=== PATIENT | female | born 1930 | race Caucasian/White ===

== ENCOUNTER 2017-05-13 12:46 | Inpatient (IN) | payer MEDICARE, OTHER ==
[~2017-05-13] VITALS: Ht 167.6 cm; Wt 64.4 kg
[2017-05-13] MEDS ORDERED: SIMV20TA6 PO (12:58)
[2017-05-13] MEDS ORDERED: OLAN2.5T3 PO (12:58)
[2017-05-13] MEDS ORDERED: HALO5TAB PO (12:58)
[2017-05-13] MEDS ORDERED: VITAMIN D3 PO (12:58)
[2017-05-13] MEDS ORDERED: LOSA50TA21 PO (12:58)
[2017-05-13 13:12] LABS: BASOPHILS # (AUTO) 0.1 K/uL (0.0-8.0); BASOPHILS % (AUTO) 0.7 % (0.0-2.0); EOSINOPHILS # (AUTO) 0.1 K/uL (0.0-0.7); EOSINOPHILS % (AUTO) 1.5 % (0.0-7.0); HEMATOCRIT 42.7 % (31.2-41.9); HEMOGLOBIN 14.5 g/dL (10.9-14.3); LYMPHOCYTES # (AUTO) 2.3 K/uL (20.0-40.0); LYMPHOCYTES % (AUTO) 25.5 % (20.5-51.5); MEAN CORPUSCULAR HEMOGLOBIN 29.6 uug (24.7-32.8); MEAN CORPUSCULAR HGB CONC 34 g/dL (32.3-35.6); MONOCYTES # (AUTO) 0.6 K/uL (2.0-10.0); NEUTROPHILS # (AUTO) 6.1 K/uL (1.8-8.9); NEUTROPHILS % (AUTO) 66.3 % (38.5-71.5); PLATELET COUNT (AUTO) 251 K/uL (179-408); RED BLOOD CELL COUNT(AUTO) 4.91 MIL/uL (3.63-4.92); WHITE BLOOD COUNT (AUTO) 9.2 K/uL (3.8-11.8)
[2017-05-13 13:23] LABS: CARBON DIOXIDE 27 mmol/L (21-32); CHLORIDE 98 mmol/L (98-107); GLUCOSE 143 mg/dL (74-106); POTASSIUM 2.9 mmol/L (3.5-5.1); UREA NITROGEN, BLOOD 14 mg/dL (7-18)
[2017-05-13 13:23] LABS: *BILIRUBIN,URIN NEGATIVE (NEGATIVE); *BLOOD, URINE Trace-lysed (NEGATIVE); *CLARITY,URINE CLEAR (CLEAR); *COLOR,URINE LIGHT YELLOW (YELLOW); *KETONES,URINE NEGATIVE (NEGATIVE); *PROTEIN,URINE 1+ (NEGATIVE); *UROBILINOGEN,URINE 0.2 E.U./dl (NORMAL); LEUKOCYTE ESTERASE ,URINE 1+ (NEGATIVE); NITRITE, URINE NEGATIVE (NEGATIVE); UGLUCOSE NEGATIVE (NEGATIVE)
[2017-05-13 13:24] LABS: ETHANOL < 3 MG/DL (0-0)
[2017-05-13 13:29] LABS: ALANINE AMINOTRANSFERASE 17 U/L (14-59); ALKALINE PHOSPHATASE 99 U/L (50-136); ASPARTATE AMINOTRANSFERASE 19 U/L (15-37); BILIRUBIN,DIRECT 0.2 mg/dL (0.0-0.2); BILIRUBIN,TOTAL 0.8 mg/dL (0.2-1.0); TOTAL PROTEIN, SERUM 9.3 g/dL (6.4-8.2)
[2017-05-13 13:34] LABS: *AMPHETAMINE, URINE NEGATIVE (NEGATIVE); *BARBITURATE, URINE NEGATIVE (NEGATIVE); *CANNABINOID, URINE NEGATIVE (NEGATIVE); *COCCAINE, URINE NEGATIVE (NEGATIVE); *OPIATE, URINE NEGATIVE (NEGATIVE); *PHENCYCLIDINE SCREEN,URINE NEGATIVE (NEGATIVE)
[2017-05-13 13:45] LABS: BACTERIA,URINE FEW /HPF (NONE SEEN); RBC,URINE 0-3 /HPF (0-3); SQUAMOUS EPITHELIAL CELL,UR MODERATE /HPF (NONE SEEN)
[2017-05-13] MEDS ORDERED: POTASSIUM CHLORIDE 20 MEQ TAB.PRT.SR PO ONE (13:45)
[2017-05-13 13:47] LABS: ACETAMINOPHEN < 2.0 ug/mL (10-30)
[2017-05-13] MEDS ORDERED: POTASSIUM CHLORIDE 20 MEQ TAB.PRT.SR ONE (14:03)
[2017-05-13 15:00] VITALS: BP 153/94
[2017-05-13] MEDS ORDERED: MAG HYDROX/AL HYDROX/SIMETH 30 ML LIQUID UDC PO PRN (15:30)
[2017-05-13] MEDS ORDERED: TEMAZEPAM 7.5 MG CAPSULE PO PRN (15:30)
[2017-05-13] MEDS ORDERED: LORAZEPAM 0.5 MG TABLET PO PRN (15:30)
[2017-05-13 20:20] VITALS: BP 146/64
[2017-05-13] MEDS: CEPHALEXIN MONOHYDRATE 250 MG CAPSULE PO SCH (22:10)
[2017-05-14] MEDS: CEPHALEXIN MONOHYDRATE 250 MG CAPSULE PO SCH ×3 (05:28→21:48)
[2017-05-14 07:25] LABS: BASOPHILS # (AUTO) 0.1 K/uL (0.0-8.0); BASOPHILS % (AUTO) 0.6 % (0.0-2.0); EOSINOPHILS # (AUTO) 0.3 K/uL (0.0-0.7); HEMOGLOBIN 14.4 g/dL (10.9-14.3); LYMPHOCYTES # (AUTO) 2.7 K/uL (20.0-40.0); LYMPHOCYTES % (AUTO) 30.8 % (20.5-51.5); MEAN CORPUSCULAR HEMOGLOBIN 29.3 uug (24.7-32.8); MEAN CORPUSCULAR HGB CONC 33 g/dL (32.3-35.6); MEAN CORPUSCULAR VOLUME 87.7 fL (75.5-95.3); MONOCYTES # (AUTO) 0.6 K/uL (2.0-10.0); MONOCYTES % (AUTO) 6.9 % (0.0-11.0); NEUTROPHILS # (AUTO) 5.1 K/uL (1.8-8.9); NEUTROPHILS % (AUTO) 58.7 % (38.5-71.5); PLATELET COUNT (AUTO) 232 K/uL (179-408); RED BLOOD CELL COUNT(AUTO) 4.91 MIL/uL (3.63-4.92); WHITE BLOOD COUNT (AUTO) 8.7 K/uL (3.8-11.8)
[2017-05-14 07:30] VITALS: BP 167/84
[2017-05-14 07:34] LABS: CARBON DIOXIDE 30 mmol/L (21-32); CHLORIDE 104 mmol/L (98-107); GLUCOSE 112 mg/dL (74-106); POTASSIUM 3.8 mmol/L (3.5-5.1); UREA NITROGEN, BLOOD 19 mg/dL (7-18)
[2017-05-14] MEDS: MAGNESIUM HYDROXIDE 30 ML LIQUID UDC PO PRN (09:10)
[2017-05-14] MEDS: LOSARTAN POTASSIUM 50 MG TABLET PO SCH (13:00)
[2017-05-14 14:11] VITALS: BP 148/72
[2017-05-14 16:41] VITALS: BP 148/72
[2017-05-14] MEDS: OLANZAPINE 2.5 MG TABLET PO SCH (17:00)
[2017-05-14] MEDS: SIMVASTATIN 20 MG TABLET PO SCH (21:00)
[2017-05-15] MEDS: CEPHALEXIN MONOHYDRATE 250 MG CAPSULE PO SCH ×3 (06:19→21:16)
[2017-05-15 08:00] VITALS: BP 146/78
[2017-05-15] MEDS: CHOLECALCIFEROL 1,000 UNIT TABLET PO SCH (08:47)
[2017-05-15] MEDS: LOSARTAN POTASSIUM 50 MG TABLET PO SCH (08:48)
[2017-05-15] MEDS: OLANZAPINE 2.5 MG TABLET PO SCH ×2 (08:48→16:03)
[2017-05-15 16:00] VITALS: BP 137/78
[2017-05-15 20:47] VITALS: BP 129/65
[2017-05-15] MEDS: SIMVASTATIN 20 MG TABLET PO SCH (21:16)
[2017-05-16] MEDS: CEPHALEXIN MONOHYDRATE 250 MG CAPSULE PO SCH ×3 (05:51→21:15)
[2017-05-16] MEDS: ACETAMINOPHEN 325 MG TABLET PO PRN (05:51)
[2017-05-16 07:30] VITALS: BP 154/80
[2017-05-16] MEDS: CHOLECALCIFEROL 1,000 UNIT TABLET PO SCH (09:20)
[2017-05-16] MEDS: LOSARTAN POTASSIUM 50 MG TABLET PO SCH (09:21)
[2017-05-16] MEDS: OLANZAPINE 2.5 MG TABLET PO SCH ×2 (09:21→18:24)
[2017-05-16 16:20] VITALS: BP 155/86
[2017-05-16] MEDS: MAGNESIUM HYDROXIDE 30 ML LIQUID UDC PO PRN (20:16)
[2017-05-16] MEDS: DOCUSATE SODIUM 100 MG CAPSULE PO SCH (20:16)
[2017-05-16] MEDS: SIMVASTATIN 20 MG TABLET PO SCH (20:16)
[2017-05-16 21:10] VITALS: BP 140/80
[2017-05-17] MEDS: CEPHALEXIN MONOHYDRATE 250 MG CAPSULE PO SCH ×3 (05:23→21:20)
[2017-05-17] MEDS: OLANZAPINE 2.5 MG TABLET PO SCH ×2 (09:02→17:14)
[2017-05-17] MEDS: DOCUSATE SODIUM 100 MG CAPSULE PO SCH ×2 (09:02→20:38)
[2017-05-17] MEDS: LOSARTAN POTASSIUM 50 MG TABLET PO SCH (09:03)
[2017-05-17] MEDS: CHOLECALCIFEROL 1,000 UNIT TABLET PO SCH (09:03)
[2017-05-17] MEDS: SIMVASTATIN 20 MG TABLET PO SCH (20:38)
[2017-05-17 21:51] VITALS: BP 133/67
[2017-05-18] MEDS: CEPHALEXIN MONOHYDRATE 250 MG CAPSULE PO SCH ×3 (06:35→22:48)
[2017-05-18 07:30] VITALS: BP 179/88
[2017-05-18] MEDS: DOCUSATE SODIUM 100 MG CAPSULE PO SCH ×2 (08:22→20:53)
[2017-05-18] MEDS: CHOLECALCIFEROL 1,000 UNIT TABLET PO SCH (08:22)
[2017-05-18] MEDS: OLANZAPINE 2.5 MG TABLET PO SCH ×2 (08:22→17:08)
[2017-05-18] MEDS: LOSARTAN POTASSIUM 50 MG TABLET PO SCH (08:23)
[2017-05-18] MEDS ORDERED: LOSARTAN POTASSIUM 50 MG TABLET PO ONE (17:45)
[2017-05-18 18:59] VITALS: BP 139/72
[2017-05-18] MEDS: SIMVASTATIN 20 MG TABLET PO SCH (20:53)
[2017-05-19] MEDS: CEPHALEXIN MONOHYDRATE 250 MG CAPSULE PO SCH ×3 (06:54→22:10)
[2017-05-19 07:30] VITALS: BP 156/87
[2017-05-19] MEDS: OLANZAPINE 2.5 MG TABLET PO SCH ×2 (08:19→16:25)
[2017-05-19] MEDS: LOSARTAN POTASSIUM 50 MG TABLET PO SCH (08:20)
[2017-05-19] MEDS: CHOLECALCIFEROL 1,000 UNIT TABLET PO SCH (08:20)
[2017-05-19] MEDS: DOCUSATE SODIUM 100 MG CAPSULE PO SCH ×2 (08:20→21:38)
[2017-05-19 16:27] VITALS: BP 167/84
[2017-05-19 20:55] VITALS: BP 147/76
[2017-05-19] MEDS: SIMVASTATIN 20 MG TABLET PO SCH (21:38)
[2017-05-20] MEDS: CEPHALEXIN MONOHYDRATE 250 MG CAPSULE PO SCH ×2 (06:17→13:04)
[2017-05-20 07:30] VITALS: BP 175/89
[2017-05-20] MEDS: DOCUSATE SODIUM 100 MG CAPSULE PO SCH ×2 (09:29→20:48)
[2017-05-20] MEDS: OLANZAPINE 2.5 MG TABLET PO SCH ×2 (09:29→17:30)
[2017-05-20] MEDS: CHOLECALCIFEROL 1,000 UNIT TABLET PO SCH (09:29)
[2017-05-20] MEDS: LOSARTAN POTASSIUM 50 MG TABLET PO SCH (09:29)
[2017-05-20] MEDS: ACETAMINOPHEN 325 MG TABLET PO PRN (13:51)
[2017-05-20 17:15] VITALS: BP 133/84
[2017-05-20 19:51] VITALS: BP 123/56
[2017-05-20] MEDS: SIMVASTATIN 20 MG TABLET PO SCH (20:48)
[2017-05-21 07:47] VITALS: BP 177/93
[2017-05-21] MEDS: OLANZAPINE 2.5 MG TABLET PO SCH (09:57)
[2017-05-21] MEDS: LOSARTAN POTASSIUM 50 MG TABLET PO SCH (09:57)
[2017-05-21] MEDS: CHOLECALCIFEROL 1,000 UNIT TABLET PO SCH (09:57)
[2017-05-21] MEDS: DOCUSATE SODIUM 100 MG CAPSULE PO SCH (09:57)
[2017-05-21 11:18] VITALS: BP 135/78
== END 2017-05-21 13:15 | disposition home or self-care (01) | DRG 885 ==
LOC: ER 12:46 → GPS 14:41
PROVIDERS: ADMIT Psychiatry & Neurology Psychiatry; ATTEND Nurse Practitioner Acute Care
DX: F25.9 Schizoaffective disorder, unspecified (principal); N39.0 Urinary tract infection, site not specified; E78.5 Hyperlipidemia, unspecified; E87.6 Hypokalemia; F31.9 Bipolar disorder, unspecified; I10 Essential (primary) hypertension
CPT/HCPCS: 36415; 71045; 80307; 85025; 93005; A4663; G0480; G0480-TC